=== PATIENT | male | born 1990 | race Caucasian/White ===

== ENCOUNTER 2017-04-23 10:55 | Emergency (ER) | payer SELFPAY ==
[~2017-04-23] VITALS: Ht 193 cm; Wt 96.0 kg
[~2017-04-23 10:55] MED LIST: AMOX875T20 PO; LORT5TAB PO; PRED20 PO
[2017-04-23 10:56] VITALS: BP 133/87; PULSE 85; RESP 18; TEMP 98; O2SAT 99
== END 2017-04-23 14:16 | disposition left against medical advice (07) ==
LOC: NED 10:55
DX: Z53.21 Procedure and treatment not carried out due to patient leaving prior to being seen by health care provider (principal)
CPT/HCPCS: 99281